=== PATIENT | male | born 2000 | race African-American/Black ===

== ENCOUNTER 2023-06-10 13:58 | Inpatient (IN) | payer BC, SELFPAY ==
[2023-06-10] VITALS (61 sets, daily range): BP systolic 102–145; BP diastolic 69–107; PULSE 66–98; RESP 12–32; TEMP 36.6; O2SAT 95–100
--- NOTE | ~2023-06-10 | XR_ITS ---
Clinical Indication: Chest pain AP and lateral views of the chest: Comparison: None Findings: The lungs are clear, without evidence of focal consolidation or pleural effusion. Cardiome diastinal silhouette is mildly prominent, possibly due to AP technique. Bones and soft tissues are un remarkable. Impression: Clear lungs. Reviewed, dictated and finalized at location . Impression: Clear lungs.
--- NOTE | ~2023-06-10 | XR_ITS ---
EXAMINATION: XR chest 1V portable Exam Date/Time: 06/14/2023 19:05 CDT HISTORY: INCREASING shortness of breath WITH COUGH Comparison: 06/13/2023. RESULT: Lines, tubes, and devices: None. Lungs and pleura: Similar bilateral lower lung segmental/lobar airspace disease. Moderate right and mild left costophrenic angle blunting. Cardiomediastinal silhouette: Stable cardiomegaly. Other: No acute osseous or upper abdominal finding. IMPRESSION: Grossly unchanged bilateral lower lung airspace disease, which could be consistent with acute chest s yndrome in the appropriate clinical context. Unchanged moderate right and small left pleural effusions. Reviewed, dictated and finalized at location K. IMPRESSION: Grossly unchanged bilateral lower lung airspace disease, which could be consist ent with acute chest syndrome in the appropriate clinical context. Unchanged moderate right and small left pleural effusions.
--- NOTE | ~2023-06-10 | XR_ITS ---
EXAMINATION: XR chest 1V portable DATE: 06/13/2023 10:08 INDICATION: Hypoxia. Sickle cell disease. TECHNIQUE: A single frontal view of the chest was obtained. COMPARISON: Chest 2 views 06/10/2023 FINDINGS: There are airspace opacities in the mid and lower lung zones with a basilar predominance. T here is a small right pleural effusion. No pneumothorax. Cardiomegaly is noted. IMPRESSION: 1. Airspace opacities in the mid and lower lung zones with a basilar predominance, consistent with ac fouzia chest syndrome. 2. Small right pleural effusion. 3. Cardiomegaly. Reviewed, dictated and finalized at location A. IMPRESSION: 1. Airspace opacities in the mid and lower lung zones with a basilar predominan ce, consistent with acute chest syndrome. 2. Small right pleural effusion. 3. Cardiomegaly.
--- NOTE | 2023-06-10 14:36 | ECG_ITS ---
Measurements Intervals [place] Rate: 65 P: 72 ME: 173 QRS: 42 QRSD: 88 T: 46 QT: 382 QTc: 399 Interpretive Statements SINUS RHYTHM NORMAL ECG NO PREVIOUS ECG AVAILABLE FOR COMPARISON Electronically Signed On 06-11-2023 10:21:33 CDT by Lencho Claire M.D.
[2023-06-10] MEDS: SODIUM CHLORIDE 0.9% IV 1,000 ML 999 ML IV CONT ×2 (14:46→16:19)
[2023-06-10] MEDS: fentaNYL CITRATE INJ (*CRX) 100 MCG/2 ML VIAL 50 MCG IV PUSH (14:47)
[2023-06-10] MEDS: ONDANSETRON INJ 4 MG/2 ML VIAL IV PUSH (14:47)
[2023-06-10 14:51] LABS: Hemoglobin 8.6 g/dL (14.0-18.0); Immature Reticulocyte Fraction 26.7 % (3.0-15.9); Mean Corpuscular HGB Conc 35.8 g/dl (32-36); Mean Corpuscular Hemoglobin 33.7 pg (26-34); Mean Corpuscular Volume 94.1 fl (80-100); Mean Platelet Volume 11.1 fl (7.4-10.4); Platelet Count Result 302 k/mm3 (150-375); Red Blood Count 2.55 M/mm3 (4.6-6.20); Red Cell Distribution Width 21.6 % (11.5-14.5); Reticulocyte Hemoglobin Conten 34.7 pg (28.2-35.7); Reticulocyte Percent 23.37 % (0.7-4.3); White Blood Count 10.3 K/mm3 (4.5-10.0)
[2023-06-10 15:00] LABS: Alanine Aminotransferase 42 U/L (6-50); Albumin Level 4.7 g/dL (3.5-5.1); Alkaline Phosphatase 63 U/L (38-126); Anion Gap 12 mmol/L (8-16); Aspartate Amino Transferase 61 U/L (17-59); Bilirubin,Total 3.3 mg/dL (0.2-1.3); Blood Urea Nitrogen 5 mg/dL (9-20); Calcium 9.2 mg/dL (8.4-10.2); Carbon Dioxide 22 mmol/L (22-30); Chloride 100 mmol/L (98-107); Estimated CRCL calculation 160 ml/min; Estimated Glomerular Filt Rate > 60; Glucose 111 mg/dL (65-110); Lactate Dehydrogenase 411 U/L (120-246); Potassium 3.6 mmol/L (3.4-5.0); Sodium 134 mmol/L (137-145)
[2023-06-10 15:02] LABS: Prothrombin Time 14.1 Seconds (11.1-14.7)
[2023-06-10 15:03] LABS: Partial Thromboplastin Time 27.6 SECONDS (22.3-36.8)
[2023-06-10 15:14] LABS: Lactic Acid Reflex 2.5 mmol/L (0.7-2.0)
[2023-06-10 15:26] LABS: Troponin I 0.055 ng/mL (0.000-0.034)
--- NOTE | 2023-06-10 15:41 | ED.GENADULT ---
HPI - General Adult General Chief complaint: Unspecified <Fabian Vargas MD - Last Filed: 06/18/23 19:20> Stated complaint: Sickle Cell pain <Fabian Vargas MD - Last Filed: 06/18/23 19:20> Time Seen by Provider: 06/10/23 14:09 <Fabian Vargas MD - Last Filed: 06/18/23 19:20> History of Present Illness HPI narrative: Patient is a 22-year-old male with history of sickle cell anemia who presents ER with reports of sickle pain crisis. Patient woke up this morning with pain in his chest/back/hips. The back and hips are typical places for him to have pain but the chest is atypical for him. His last acute chest crisis was in 2010. Patient typically receives care at [facility]. 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 He has no fevers or chills or sweats. No productive cough. No dyspnea despite history of asthma. He reports he missed his pheresis appointment last month and is scheduled to have pheresis of his blood performed in the next week. Denies any aggravating or alleviating factors of his discomfort. He typically takes Tylenol for pain at home. He is not on hydroxyurea. <Fabian Vargas MD - Last Filed: 06/18/23 19:20> Related Data Home medications: Home Medications Medication Instructions Recorded Confirmed albuterol sulfate 90 mcg/actuation 1 puff inhalation Q4-6H PRN 06/11/23 06/11/23 aerosol inhaler Shortness Of Breath Or Wheezing bictegravir 50 mg-emtricitabine 1 tablet PO DAILY 06/11/23 06/11/23 200 mg-tenofovir alafenam 25 mg tablet (Biktarvy) budesonide-formoterol HFA 80 1 puff inhalation DAILY 06/11/23 06/11/23 mcg-4.5 mcg/actuation aerosol inhaler (Symbicort) fluticasone propionate 50 1 spray intranasal DAILY PRN 06/11/23 06/11/23 mcg/actuation nasal Congestion spray,suspension valacyclovir 1 gram tablet 1 mg PO DAILY 06/11/23 06/11/23 <Fabian Vargas MD - Last Filed: 06/18/23 19:20> Allergies/adverse reactions: Allergies Allergy/AdvReac Type Severity Reaction Status Date / Time morphine Allergy Hives Verified 06/10/23 14:13 <Fabian Vargas MD - Last Filed: 06/18/23 19:20> Review of Systems Review of Systems: All systems reviewed & are unremarkable except as noted in HPI and below <Fabian Vargas MD - Last Filed: 06/18/23 19:20> Constitutional: Constitutional: Denies chills, Denies fatigue and Denies fever(s) <Fabian Vargas MD - Last Filed: 06/18/23 19:20> Cardiovascular: Cardiovascular: Reports chest pain, Reports radiating jaw, neck or arm pain and Reports palpitations <Fabian Vargas MD - Last Filed: 06/18/23 19:20> Respiratory: Respiratory: Denies cough and Denies dyspnea <Fabian Vargas MD - Last Filed: 06/18/23 19:20> Gastrointestinal: Gastrointestinal: Denies abdominal pain, Denies diarrhea, Denies nausea and Denies vomiting <Fabian Vargas MD - Last Filed: 06/18/23 19:20> Musculoskeletal: Musculoskeletal: Reports back pain, Reports arthralgias, Denies joint swelling and Denies muscle cramps <Fabian Vargas MD - Last Filed: 06/18/23 19:20> Neurologic: Denies syncope, Denies focal weakness and Denies numbness <Fabian Vargas MD - Last Filed: 06/18/23 19:20> FOR[facility]LY [facility], [facility] Past Medical History Medical History: Medical History (Updated 06/11/23 @ 19:04 by Odell Carvalho MD) Asthma Sickle cell anemia with crisis <Fabian Vargas MD - Last Filed: 06/18/23 19:20> Surgical History Surgical History: Surgical History (Updated 06/11/23 @ 19:04 by Odell Carvalho MD) No history of previous surgery <Fabian Vargas MD - Last Filed: 06/18/23 19:20> Family History Family History: Family History (Updated 06/11/23 @ 16:13 by Lauryn Casanova NP) Sibling Sickle cell trait Mother Hypertension Sickle cell trait <Fabian Vargas MD - Last Filed: 06/18/23 19:20> Social History Social History: Social History (Up
[2023-06-10 16:01] LABS: Lymphocytes Absolute Manual 2.36 K/mm3 (1.1-4.5); Metamyelocytes Percent 2 %; Monocytes Absolute Manual 1.23 K/mm3 (0.1-0.90); Monocytes Percent Manual 12 % (3-9); Myelocytes Percent 2 %; Neutrophils Percent Manual 61 % (46-73); Nucleated Red Blood Cells 2 %; Total Cells Counted 100
[2023-06-10 16:02] LABS: Anisocytosis 2+ (NORMAL); Platelet Estimate Adequate (Adequate); Poikilocytosis 2+ (NORMAL); Schistocytes None Seen (NORMAL)
[2023-06-10 16:04] LABS: Sickle Cells 2+ (NORMAL); Target Cells 1+ (NORMAL)
[2023-06-10] MEDS: diphenhydrAMINE HCl INJ 50 MG/ML VIAL 25 MG IV PUSH ×2 (16:13→22:04)
[2023-06-10] MEDS: HYDROmorphone HCL INJ (*CRX) 1 MG/ML SYR IV PUSH ×3 (16:14→22:05)
[2023-06-10 18:00] LABS: Reflex Lactic Acid Yes or No Add Lactic
[2023-06-10 18:09] LABS: Troponin I 0.055 ng/mL (0.000-0.034)
[2023-06-10] MEDS: SODIUM CHLORIDE 0.9% IV 1,000 ML 150 ML IV CONT (18:15)
[2023-06-10 18:34] LABS: Lactic Acid 0.6 mmol/L (0.7-2.0)
[2023-06-10] MEDS: diphenhydrAMINE HCl INJ 50 MG/ML VIAL (19:58)
[2023-06-10 21:08] LABS: Troponin I 0.051 ng/mL (0.000-0.034)
[2023-06-11] VITALS (83 sets, daily range): BP systolic 104–140; BP diastolic 64–90; PULSE 77–133; RESP 12–33; TEMP 36.7–38.7; O2SAT 92–100; BMI 19.0
[2023-06-11] MEDS: HYDROmorphone HCL INJ (*CRX) 1 MG/ML SYR IV PUSH ×4 (01:24→15:22)
[2023-06-11] MEDS: KETOROLAC 15 MG/ML VIAL (*BKC) IV PUSH (01:28)
--- NOTE | 2023-06-11 03:49 | PC.NURSE ---
updated [facility] transfer center; no beds available at this time.
[2023-06-11] MEDS: SODIUM CHLORIDE 0.9% IV 1,000 ML 150 ML IV CONT (05:04)
[2023-06-11] MEDS: oxyCODONE/ACETAMINOPHEN (*CRX) 5-325 MG TABLET 1 TABLET PO (05:05)
[2023-06-11 06:53] LABS: Basophils Absolute Auto 0.1 K/mm3 (0.0-0.1); Basophils Percent Auto 0.4 % (0.2-1.2); Eosinophils Percent Auto 0.1 % (0-4.4); Hematocrit 22.5 % (42.0-52.0); Hemoglobin 7.8 g/dL (14.0-18.0); Immature Granulocyte Absolute 0.39 K/mm3 (0.00-0.031); Immature Granulocyte Percent A 2.6 % (0-0.5); Lymphocytes Absolute Auto 0.75 K/mm3 (0.9-3.2); Lymphocytes Percent Auto 5.1 % (18.3-44.2); Mean Corpuscular HGB Conc 34.7 g/dl (32-36); Mean Corpuscular Hemoglobin 33.8 pg (26-34); Mean Corpuscular Volume 97.4 fl (80-100); Mean Platelet Volume 10.5 fl (7.4-10.4); Monocytes Absolute Auto 0.9 K/mm3 (0.1-0.6); Monocytes Percent Auto 6.2 % (2.6-8.5); Neutrophils Absolute Auto 12.7 K/mm3 (1.3-6.7); Neutrophils Percent Auto 85.6 % (45.5-73.1); Nucleated Red Blood Cells Absolute Auto 0.8 K/mm3 (0.0-0.012); Nucleated Red Blood Cells Perc 5.1 % (0.0-0.2); Platelet Count Result 218 k/mm3 (150-375); Red Blood Count 2.31 M/mm3 (4.6-6.20); Red Cell Distribution Width 21.7 % (11.5-14.5); White Blood Count 14.9 K/mm3 (4.5-10.0)
[2023-06-11 07:02] LABS: Potassium 4.2 mmol/L (3.4-5.0)
[2023-06-11 07:03] LABS: Sickle Cells 3+ (NORMAL)
[2023-06-11 07:04] LABS: Anisocytosis 3+ (NORMAL); Platelet Estimate Adequate (Adequate); Poikilocytosis 2+ (NORMAL); Schistocytes None Seen (NORMAL); Target Cells 1+ (NORMAL)
[2023-06-11 07:08] LABS: Alanine Aminotransferase 43 U/L (6-50); Albumin Level 4.1 g/dL (3.5-5.1); Alkaline Phosphatase 53 U/L (38-126); Anion Gap 5 mmol/L (8-16); Aspartate Amino Transferase 88 U/L (17-59); Bilirubin,Total 2.6 mg/dL (0.2-1.3); Blood Urea Nitrogen 4 mg/dL (9-20); Calcium 8.6 mg/dL (8.4-10.2); Carbon Dioxide 26 mmol/L (22-30); Chloride 102 mmol/L (98-107); Estimated CRCL calculation 160 ml/min; Estimated Glomerular Filt Rate > 60; Glucose 108 mg/dL (65-110); Sodium 133 mmol/L (137-145)
--- NOTE | 2023-06-11 10:26 | ADMGEN ---
This patient, Azar Bernard, was admitted to IMU Room 205-01. Patient/family oriented to hospital policies and general routines including ID bracelet, bed and alarms, visiting hours, pain management, procedures, bathroom and other care routines, personal items, smoking policy, room service/diet, and visiting hours. Information on how to activate the Rapid Response Team has been discussed. Patient/Family are encouraged to report perceived risks to care and to ask questions if they do not understand what they are told or what they should do.
[2023-06-11] MEDS: SODIUM CHLORIDE 0.9% IV 1,000 ML 125 ML IV CONT ×2 (12:01→21:25)
--- NOTE | 2023-06-11 13:47 | PM.IMHP ---
H&P: HPI History of Present Illness Date/Time: 06/11/23 13:47 Chief Complaint: Sickle cell pain Narrative: This is a 22-year-old male patient who has a history of sickle cell anemia. 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 He also has pain in his chest that started on the morning that he came to the emergency room on 06/10/2023. The patient typically gets all of his care at [facility]. He has had no fever chills. The patient does use an inhaler p.r.n. for wheezes as he has asthma. The patient has not been able to tolerate hydroxyurea. The patient does not take any chronic narcotics. He has an allergy to morphine. His white count is noted to be 14.9 today with an H&H is 7.8 and 22.5. His hemoglobin was 8.6 on the day that he came to the emergency room yesterday. Sodium is 133. His troponin is 0.055, 0.055, and 0.051. The patient has a poor oral intake and is complaining of some abdominal pain. His chest x-ray on 06/10/2023 was read as clear lungs. The patient was given Dilaudid, Benadryl, IV fluid, aspirin, and oxycodone. The patient continues to climb plane of discomfort. Patient has 3+ sickle cells on his CBC. Reticular count 23.37 yesterday. The patient is being admitted to observation status on the date of service of 06/11/2023. Review of Systems Review of Systems: All systems reviewed & are unremarkable except as noted in HPI and below Constitutional: Constitutional: Reports as per HPI and Reports no additional constitutional complaints Eyes: Eyes: Reports as per HPI and Reports no additional eye complaints ENT: Reports system reviewed and no additional complaints, except as documented and Reports Normal hearing present Cardiovascular: Cardiovascular: Reports no additional cardiovascular complaints Respiratory: Respiratory: Reports no additional respiratory complaints and Reports no additional respiratory complaints Gastrointestinal: Gastrointestinal: Reports as per HPI and Reports no additional gastrointestinal complaints Musculoskeletal: Musculoskeletal: Reports no additional musculoskeletal complaints Integumentary/Breasts: Skin/Breast: Reports system reviewed and no additional complaints, except as docu and Reports as per HPI Neurologic: Reports system reviewed and no additional complaints, except as documented, Reports as per HPI and Reports Normal hearing present Psychiatric: Psychiatric: Reports no additional psychiatric complaints and Reports as per HPI Endocrine: Endocrine: Reports no additional endocrine complaints Hematologic/Lymphatic: Hematologic/Lymphatic: Reports no additional hematologic/lymphatic complaints Allergic/Immunologic: Allergic/Immunologic: Reports no additional allergic/immunologic complaints [facility] Past Medical History Medical History (Updated 06/11/23 @ 16:08 by Lauryn Casanova NP) Asthma Sickle cell anemia with crisis Surgical History Surgical History (Updated 06/10/23 @ 15:45 by Fabian Vargas MD) No history of previous surgery Family History Family History (Updated 06/11/23 @ 16:13 by Lauryn Casanova NP) Sibling Sickle cell trait Mother Hypertension Sickle cell trait Social History Social History (Updated 06/11/23 @ 16:14 by Lauryn Casanova NP) Social History: The patient is single and has no children. The patient does vape. he lives in [place]. He denies any alcohol or illicit drugs. 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 Code status full code Smoking status: Never smoker Lack of Transportation: No Lack of Food: Never True Current Housing: I Have Housing Concerned About Future Housing: No Difficulty Paying Gas/Electric Bills: No Difficulty Paying for Meds: No Currently Unemployed: No Education: High School Diploma/GED Difficulty w/ Childcare or Family Care: No Spiritual care concerns: No M
[2023-06-11] MEDS: diphenhydrAMINE HCl INJ 50 MG/ML VIAL 25 MG IV PUSH (15:26)
[2023-06-11 16:04] LABS: Hematocrit 21.7 % (42.0-52.0); Hemoglobin 7.6 g/dL (14.0-18.0)
[2023-06-11] MEDS: HYDROmorphon 0.2MG/ML PCA(*CRX 6 MG/30 ML PCA.VIAL 2.5 MG IV CONT ×2 (16:49→21:39)
--- NOTE | 2023-06-11 19:00 | PDONCCN ---
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 Patient has been on exchange transfusion on a monthly basis for last 3 years duration at [facility]. His last exchange transfusion was about a month ago. He denies any sign of infection including fever chills and dysuria. He has intolerant to hydroxyurea and is not taking any folic acid. On admission is hemoglobin moderate 0.6 with elevated LDH. Retic count and bilirubin was elevated. Chest x-ray was normal. He was started on IV hydration and Dilaudid [employer] with improvement in the pain control. Review of Systems - Review of Systems All systems reviewed & are unremarkable except as noted in HPI and bel - Neurologic Reports system reviewed and no additional complaints, except as documented, Reports hearing normal, Denies syncope, Denies focal weakness, Denies numbness [facility] Medical History: Medical History (Last Updated 06/11/23 @ 16:08 by Lauryn Casanova NP) Asthma Sickle cell anemia with crisis Surgical History: Surgical History (Last Updated 06/10/23 @ 15:45 by Fabian Vargas MD) No history of previous surgery Family History: Family History (Last Updated 06/11/23 @ 16:13 by Lauryn Casanova NP) Sibling Sickle cell trait Mother Hypertension Sickle cell trait - Social History Social History: Social History (Last Updated 06/11/23 @ 16:14 by Lauryn Casanova NP) Others: Spiritual care concerns: No Smoking Status: Smoking status: Never smoker Social Determinants of Health: Has the Lack of Transportation Kept You From Medical Appointments or From Getting Medications?: No Within the Past 12 Months, Were You Worried Whether Your Food Would Run Out Before You Got Money to Buy More?: Never True What is Your Housing Situation Today?: I Have Housing Are You Worried That in the Next 2 Months, You May Not Have Your Own Housing to Live In?: No Do You Have Trouble Paying Your Heating Or Electricity Bill?: No Do You Have Trouble Paying For Medicines?: No Are You Currently Unemployed and Looking for Work?: No Highest Level of Education Completed: High School Diploma/GED Do You Have Trouble With Childcare or the Care of a Family Member?: No Exam - Vital Signs Vital Signs - 24 hr 06/10/23 19:10 06/10/23 19:15 06/10/23 19:17 Temperature Pulse Rate 69 69 90 Respiratory Rate 12 12 19 Blood Pressure 116/87 130/77 Pulse Oximetry 100 100 100 Oxygen Delivery Oxygen Flow Rate 06/10/23 19:30 06/10/23 19:31 06/10/23 19:45 Temperature Pulse Rate 73 68 67 Respiratory Rate 17 20 21 H Blood Pressure 119/77 Pulse Oximetry 100 100 100 Oxygen Delivery Oxygen Flow Rate 06/10/23 19:46 06/10/23 20:00 06/10/23 20:01 Temperature Pulse Rate 68 78 70 Respiratory Rate 18 23 H 15 Blood Pressure 130/102 H 131/82 Pulse Oximetry 100 100 100 Oxygen Delivery Oxygen Flow Rate 06/10/23 20:15 06/10/23 20:16 06/10/23 20:30 Temperature Pulse Rate 74 78 73 Respiratory Rate 12 13 14 Blood Pressure 126/85 Pulse Oximetry 100 100 100 Oxygen Delivery Oxygen Flow Rate 06/10/23 20:45 06/10/23 21:00 06/10/23 21:15 Temperature Pulse Rate 71 74 92 Respiratory Rate 18 13 18 Blood Pressure Pulse Oximetry 100 100 100 Oxygen Delivery Oxygen Flow Rate 06/10/23 21:30 06/10/23 21:45 06/10/23 22:00 Temperature Pulse Rate 78 87 81 Respiratory Rate 17 16 18 Blood Pressure Pulse Oximetry 100 100 100 Oxygen Delivery Oxygen Flow Rate 06/10/23 22:10 06/10/23 22:15
[2023-06-11 19:43] LABS: Lactate Dehydrogenase 1177 U/L (120-246)
[2023-06-11] MEDS: FLUTICASONE/SALMETEROL 45-21 MCG INHALER 1 PUFF 2 PUFF INHALATION (20:25)
[2023-06-11] MEDS: ALBUTEROL SULFATE NEB 2.5 MG/3 ML INH INHALATION (21:29)
[2023-06-11 22:37] LABS: Hemoglobin 7.8 g/dL (14.0-18.0)
[2023-06-12] VITALS (24 sets, daily range): BP systolic 107–124; BP diastolic 60–74; PULSE 110–139; RESP 14–26; TEMP 36.4–38.7; O2SAT 93–100
[2023-06-12] MEDS: ACETAMINOPHEN 325 MG TABLET 650 MG PO ×3 (00:29→22:43)
[2023-06-12] MEDS: diphenhydrAMINE HCl INJ 50 MG/ML VIAL 25 MG IV PUSH ×4 (03:27→22:44)
[2023-06-12] MEDS: HYDROmorphon 0.2MG/ML PCA(*CRX 6 MG/30 ML PCA.VIAL 2.5 MG IV CONT ×3 (04:23→16:58)
[2023-06-12] MEDS: SODIUM CHLORIDE 0.9% IV 1,000 ML 125 ML IV CONT ×3 (04:29→20:32)
[2023-06-12 04:44] LABS: Appearance Urine Clear (Clear); Bilirubin Urine Negative (Negative); Blood Urine Negative (Negative); Color Urine Yellow (Yellow); Glucose Urine UA Negative (Negative); Ketones Urine Negative (Negative); Leukocyte Esterase Ur Negative LEU/UL (Negative); Nitrate Urine Negative (Negative); Protein Urine Negative (Negative); Specific Grav Ur 1.007 (1.001-1.035); pH Urine 5.5 (5.0-9.0)
[2023-06-12 04:47] LABS: Add Urine Microscopic? NO
[2023-06-12 04:51] LABS: Hematocrit 21.4 % (42.0-52.0); Hemoglobin 7.5 g/dL (14.0-18.0); Mean Corpuscular Hemoglobin 33.9 pg (26-34); Mean Corpuscular Volume 96.8 fl (80-100); Mean Platelet Volume 10.5 fl (7.4-10.4); Platelet Count Result 194 k/mm3 (150-375); Red Blood Count 2.21 M/mm3 (4.6-6.20); Red Cell Distribution Width 19.8 % (11.5-14.5); White Blood Count 11.5 K/mm3 (4.5-10.0)
[2023-06-12 05:02] LABS: Lactic Acid Reflex 0.8 mmol/L (0.7-2.0)
[2023-06-12 05:03] LABS: Alanine Aminotransferase 50 U/L (6-50); Albumin Level 3.6 g/dL (3.5-5.1); Alkaline Phosphatase 117 U/L (38-126); Anion Gap 0 mmol/L (8-16); Aspartate Amino Transferase 94 U/L (17-59); Bilirubin,Total 2.7 mg/dL (0.2-1.3); Blood Urea Nitrogen 5 mg/dL (9-20); Calcium 8.3 mg/dL (8.4-10.2); Carbon Dioxide 32 mmol/L (22-30); Chloride 97 mmol/L (98-107); Estimated CRCL calculation 164 ml/min; Estimated Glomerular Filt Rate > 60; Glucose 96 mg/dL (65-110); Potassium 4.1 mmol/L (3.4-5.0); Sodium 129 mmol/L (137-145)
[2023-06-12 05:07] LABS: Immature Reticulocyte Fraction 19.1 % (3.0-15.9); Reticulocyte Hemoglobin Conten 30.5 pg (28.2-35.7); Reticulocyte Percent 24.16 % (0.7-4.3)
[2023-06-12 05:21] LABS: Eosinophils Absolute Manual 0.11 K/mm3 (0.02-0.5); Eosinophils Percent Manual 1 % (0-4); Lymphocytes Absolute Manual 2.99 K/mm3 (1.1-4.5); Monocytes Absolute Manual 0.23 K/mm3 (0.1-0.90); Monocytes Percent Manual 2 % (3-9); Neutrophils Percent Manual 71 % (46-73); Nucleated Red Blood Cells 42 %; Total Cells Counted 100
[2023-06-12 05:22] LABS: Platelet Estimate Adequate (Adequate); Sickle Cells 3+ (NORMAL)
[2023-06-12 05:23] LABS: Anisocytosis 3+ (NORMAL); Macrocytosis 2+ (NORMAL); Poikilocytosis 3+ (NORMAL); Target Cells 3+ (NORMAL)
[2023-06-12 05:24] LABS: Polychromasia 1+ (NORMAL)
[2023-06-12 05:26] LABS: Schistocytes None Seen (NORMAL)
[2023-06-12] MEDS: FLUTICASONE/SALMETEROL 45-21 MCG INHALER 1 PUFF 2 PUFF INHALATION ×2 (08:04→19:30)
[2023-06-12] MEDS: valACYclovir HCL 500 MG TABLET 1000 MG PO (09:08)
--- NOTE | 2023-06-12 11:20 | PM.IMPN ---
Progress Note: A&P Assessment and Plan (1) Sickle cell pain crisis: Code(s): D57.00 - Hb-SS disease with crisis, unspecified Status: Acute Assessment and Plan: Reticular count is high. Sickle cells present in the blood. Hematology has been consulted. Continue on a Dilaudid [employer] pump. The patient cannot tolerate hydroxyurea. He is not chronically on any narcotics. Oncology on board (2) Asthma: Code(s): J45.909 - Unspecified asthma, uncomplicated Status: Acute Assessment and Plan: Continue with home inhalers. Chest x-ray was read as clear lungs. Subjective Date/time seen: 06/12/23 11:20 Interval history: Patient states his pain is improved. Advised him to decrease use of Dilaudid [employer] a Review of Systems Review of Systems: All systems reviewed & are unremarkable except as noted in HPI and below Constitutional: Constitutional: Reports as per HPI and Reports no additional constitutional complaints Eyes: Eyes: Reports as per HPI and Reports no additional eye complaints ENT: Reports system reviewed and no additional complaints, except as documented and Reports Normal hearing present Cardiovascular: Cardiovascular: Reports no additional cardiovascular complaints Respiratory: Respiratory: Reports no additional respiratory complaints and Reports no additional respiratory complaints Gastrointestinal: Gastrointestinal: Reports as per HPI and Reports no additional gastrointestinal complaints Musculoskeletal: Musculoskeletal: Reports no additional musculoskeletal complaints Integumentary/Breasts: Skin/Breast: Reports system reviewed and no additional complaints, except as docu and Reports as per HPI Neurologic: Reports system reviewed and no additional complaints, except as documented, Reports as per HPI and Reports Normal hearing present Psychiatric: Psychiatric: Reports no additional psychiatric complaints and Reports as per HPI Endocrine: Endocrine: Reports no additional endocrine complaints Hematologic/Lymphatic: Hematologic/Lymphatic: Reports no additional hematologic/lymphatic complaints Allergic/Immunologic: Allergic/Immunologic: Reports no additional allergic/immunologic complaints Exam Const: General: cooperative, healthy appearing, comfortable, no acute distress, well developed, alert, awake, Physically active and thin Nutritional Appearance: average body habitus and thin Orientation/consciousness: oriented to person, oriented to place, oriented to time and patient oriented x3 Limitations: no limitations HENMT: Head: normal to inspection, No palpable skull fracture present, normocephalic, atraumatic and abrasion Ears: hearing grossly normal bilaterally and external ears normal Face/Nose/Sinus: Normal external nose present and Normal nares present Eyes: General: appearance normal, both eyes and all related structures Alignment and Position: alignment normal Periorbital: periorbital findings normal Eyelids: eyelids normal Sclera: sclerae normal Pupils: Equal, round and reactive pupils present EOM: EOMs intact bilaterally Neck: Neck: normal visual inspection, full ROM, no lymphadenopathy, trachea midline and supple Chest: Chest palpation & inspection: normal inspection of the chest Resp: Effort & Inspection: normal respiratory effort Auscultation: diminished lung sounds Cardio: Palpation: normal PMI Rate: regular rate Rhythm: regular rhythm Heart sounds: S1 normal heart sound present and S2 normal heart sound present Peripheral pulses: Peripheral pulses 2+ throughout GI: Inspection: normal to inspection Auscultation: normal bowel sounds Rectal Exam: deferred Back/Spine/Pelvis: Cervical Spine: cervical ROM normal Skin: General skin exam: normal color Lesions: no lesions Rashes: no rashes Trauma: no lacerations or abrasions Wounds: no wounds Hair: normal Nails: normal Neuro: General: oriented to person, oriented to place, oriented to time and patient orient
[2023-06-12] MEDS: HYDROmorphone HCL INJ (*CRX) 1 MG/ML SYR 0.5 MG IV PUSH (17:36)
[2023-06-13] VITALS (29 sets, daily range): BP systolic 114–141; BP diastolic 66–93; PULSE 96–133; RESP 18–22; TEMP 36.3–37.3; O2SAT 89–98
[2023-06-13] MEDS: HYDROmorphon 0.2MG/ML PCA(*CRX 6 MG/30 ML PCA.VIAL 2.5 MG IV CONT ×4 (01:11→21:29)
[2023-06-13] MEDS: ALBUTEROL SULFATE NEB 2.5 MG/3 ML INH INHALATION (02:31)
[2023-06-13] MEDS: SODIUM CHLORIDE 0.9% IV 1,000 ML 125 ML IV CONT (04:46)
[2023-06-13] MEDS: ACETAMINOPHEN 325 MG TABLET 650 MG PO ×5 (04:46→20:32)
[2023-06-13] MEDS: diphenhydrAMINE HCl INJ 50 MG/ML VIAL 25 MG IV PUSH ×5 (04:47→20:32)
[2023-06-13] MEDS: FLUTICASONE/SALMETEROL 45-21 MCG INHALER 1 PUFF 2 PUFF INHALATION ×2 (07:53→20:17)
[2023-06-13] MEDS: valACYclovir HCL 500 MG TABLET 1000 MG PO (08:15)
--- NOTE | 2023-06-13 09:19 | PC.NURSE ---
Patient having increase O2 requirements , desats to 70% when NC is removed, Hr elevated 120-130s. No complaints of dyspnea. Patient currently on 4L NC with sats 92% Patient also states that he has asthma. Notified MD, CXR ordered.
[2023-06-13 09:34] LABS: Mean Corpuscular HGB Conc 34.9 g/dl (32-36); Mean Corpuscular Volume 94.5 fl (80-100); Mean Platelet Volume 10.8 fl (7.4-10.4); Platelet Count Result 155 k/mm3 (150-375); Red Blood Count 1.82 M/mm3 (4.6-6.20); Red Cell Distribution Width 19.5 % (11.5-14.5)
[2023-06-13 09:38] LABS: Hematocrit 17.2 % (42.0-52.0)
[2023-06-13 09:45] LABS: Alanine Aminotransferase 43 U/L (6-50); Albumin Level 3.4 g/dL (3.5-5.1); Alkaline Phosphatase 93 U/L (38-126); Anion Gap 0 mmol/L (8-16); Aspartate Amino Transferase 64 U/L (17-59); Bilirubin,Total 3.7 mg/dL (0.2-1.3); Blood Urea Nitrogen 6 mg/dL (9-20); Carbon Dioxide 34 mmol/L (22-30); Chloride 97 mmol/L (98-107); Estimated CRCL calculation 164 ml/min; Estimated Glomerular Filt Rate > 60; Glucose 105 mg/dL (65-110); Potassium 4.1 mmol/L (3.4-5.0); Sodium 131 mmol/L (137-145)
[2023-06-13 10:00] LABS: Total Cells Counted 100
[2023-06-13 10:01] LABS: Anisocytosis 2+ (NORMAL); Lymphocytes Absolute Manual 1.54 K/mm3 (1.1-4.5); Lymphocytes Percent Manual 11 % (18-44); Monocytes Absolute Manual 0.28 K/mm3 (0.1-0.90); Monocytes Percent Manual 2 % (3-9); Neutrophils Percent Manual 87 % (46-73); Nucleated Red Blood Cells 8 %; Platelet Estimate Adequate (Adequate)
[2023-06-13 10:02] LABS: Sickle Cells 2+ (NORMAL); Target Cells 2+ (NORMAL)
[2023-06-13 10:03] LABS: Hypochromasia 2+ (NORMAL); Schistocytes None Seen (NORMAL)
--- NOTE | 2023-06-13 11:42 | PM.IMPN ---
Progress Note: A&P Assessment and Plan (1) Sickle cell pain crisis: Code(s): D57.00 - Hb-SS disease with crisis, unspecified Status: Acute Assessment and Plan: Reticular count is high. Sickle cells present in the blood. Hematology has been consulted. Continue on a Dilaudid [employer] pump. The patient cannot tolerate hydroxyurea. Oncology on board. Cbc suggest acute drop in hemoglobin. Most likely that is why he is requiring oxygen because of high oxygen demand. We will transfuse 1 unit PRBC and monitor CBC after that. Continue IV fluids judiciously (2) Asthma: Code(s): J45.909 - Unspecified asthma, uncomplicated Status: Acute Assessment and Plan: Continue with home inhalers. Chest x-ray shows acute chest syndrome Subjective Date/time seen: 06/13/23 11:42 Interval history: Patient still reports generalized pain, requiring 3-4 L oxygen now because of hypoxia Review of Systems Review of Systems: All systems reviewed & are unremarkable except as noted in HPI and below Exam Const: General: cooperative, healthy appearing, alert, awake, Physically active and thin Nutritional Appearance: average body habitus and thin Orientation/consciousness: oriented to person, oriented to place, oriented to time and patient oriented x3 Limitations: no limitations HENMT: Head: normal to inspection, No palpable skull fracture present, normocephalic, atraumatic and abrasion Ears: hearing grossly normal bilaterally and external ears normal Face/Nose/Sinus: Normal external nose present and Normal nares present Eyes: General: appearance normal, both eyes and all related structures Alignment and Position: alignment normal Periorbital: periorbital findings normal Eyelids: eyelids normal Sclera: sclerae normal Pupils: Equal, round and reactive pupils present EOM: EOMs intact bilaterally Neck: Neck: normal visual inspection, full ROM, no lymphadenopathy, trachea midline and supple Chest: Chest palpation & inspection: normal inspection of the chest Resp: Effort & Inspection: normal respiratory effort Auscultation: diminished lung sounds Cardio: Palpation: normal PMI Rate: regular rate Rhythm: regular rhythm Heart sounds: S1 normal heart sound present and S2 normal heart sound present Peripheral pulses: Peripheral pulses 2+ throughout GI: Inspection: normal to inspection Auscultation: normal bowel sounds Rectal Exam: deferred Back/Spine/Pelvis: Cervical Spine: cervical ROM normal Skin: General skin exam: normal color Lesions: no lesions Rashes: no rashes Trauma: no lacerations or abrasions Wounds: no wounds Hair: normal Nails: normal Neuro: General: oriented to person, oriented to place, oriented to time and patient oriented x3 Cranial nerves: Yes Equal, round and reactive pupils present and Yes Normal hearing present Cognition (Neuro): normal cognition Speech: normal speech Sensory Exam: normal sensation Extrem: General: normal to inspection Right upper extremity: normal to inspection and shoulder/upper arm Left upper extremity: normal to inspection and shoulder/upper arm Right lower extremity: normal to inspection Left lower extremity: normal to inspection Psych: Appearance: grossly normal Mental Status: mental status grossly normal Speech and movement: Normal speech and movement present Affect: normal affect Attitude: cooperative Thought process: Normal thought process present Thought content: Yes Normal thought content present Insight: Good insight present (Psych) Judgement: Good judgement present (Psych) Objective Data Vital Signs Vital Signs: Vital Signs - 24 hr 06/12/23 12:00 06/12/23 16:00 06/12/23 16:58 Temperature 97.5 F L 97.5 F L Pulse Rate 122 H 123 H Respiratory Rate 20 16 26 H Blood Pressure 117/66 119/74 Pulse Oximetry 99 97 100 Oxygen Delivery Oxygen Flow Rate Fraction of Inspired Oxygen 06/12/23 16:58 06/12/23 12:00 06/12/23 14:00 T
[2023-06-13] MEDS: SODIUM CHLORIDE 0.9% IV 1,000 ML 75 ML IV CONT ×2 (12:16→22:13)
[2023-06-13] MEDS: SODIUM CHLORIDE 0.9% IV 250 ML 30 ML IV CONT (16:22)
[2023-06-13 19:14] LABS: Hematocrit 14.6 % (42.0-52.0); Hemoglobin 4.9 g/dL (14.0-18.0)
[2023-06-13 20:17] LABS: Hematocrit 21.2 % (42.0-52.0); Hemoglobin 7.2 g/dL (14.0-18.0)
[2023-06-14] VITALS (27 sets, daily range): BP systolic 113–140; BP diastolic 65–81; PULSE 108–133; RESP 14–20; TEMP 36.1–36.5; O2SAT 88–100
[2023-06-14] MEDS: ALBUTEROL SULFATE NEB 2.5 MG/3 ML INH INHALATION ×2 (03:03→14:29)
[2023-06-14] MEDS: ACETAMINOPHEN 325 MG TABLET 650 MG PO ×4 (03:57→18:35)
[2023-06-14] MEDS: ONDANSETRON INJ 4 MG/2 ML VIAL IV PUSH (04:04)
[2023-06-14] MEDS: HYDROmorphon 0.2MG/ML PCA(*CRX 6 MG/30 ML PCA.VIAL 2.5 MG IV CONT ×4 (04:21→23:24)
[2023-06-14] MEDS: FLUTICASONE/SALMETEROL 45-21 MCG INHALER 1 PUFF 2 PUFF INHALATION ×2 (08:03→21:01)
--- NOTE | 2023-06-14 08:20 | PM.IMPN ---
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 Continue on a Dilaudid WAREHOUSE EXAMINER pump. The patient cannot tolerate hydroxyurea. Oncology on board. Monitor LDH, retic count, hgb. S/p transfusion 1 unit pRBCs 06/13 Continue IV fluids judiciously, dilaudid WAREHOUSE EXAMINER (2) Asthma: Code(s): J45.909 - Unspecified asthma, uncomplicated Status: Acute Assessment and Plan: Continue with home inhalers. Chest x-ray shows acute chest syndrome Plan DVT prophylaxis with SCDs GI prophylaxis not indicated Code status full code Subjective Date/time seen: 06/14/23 08:20 Interval history: 22-year-old male with history of sickle cell anemia presenting with generalized pain and being treated for sickle cell crisis. No overnight events noted. Still with some chest pain or shortness of breath, improved from yesterday. No nausea, vomiting or diarrhea. No fevers or chills. Review of Systems Review of Systems: 12 point review of systems was assessed and was negative except as noted in the HPI Exam Narrative: General: No acute distress, alert and oriented per baseline HEENT: Atraumatic, normocephalic, mucous membranes moist CV: Regular rate and rhythm, S1, S2 Lungs: Clear to auscultation bilaterally, no rales or crackles noted, no wheezes, good air entry Abdomen: Soft, nontender, nondistended Extremities: Normal to inspection Skin: No rashes noted, no lesions or wounds seen Psych: Euthymic, normal affect Objective Data Vital Signs Vital Signs: Vital Signs - 24 hr 06/13/23 09:00 06/13/23 10:00 06/13/23 11:59 Temperature 98.2 F Pulse Rate 127 H 126 H 120 H Respiratory Rate 18 Blood Pressure 121/71 Pulse Oximetry 91 98 Oxygen Delivery Oxygen Flow Rate 4 Fraction of Inspired Oxygen 06/13/23 15:35 06/13/23 16:08 06/13/23 16:15 Temperature 99.2 F 99.2 F 97.9 F Pulse Rate 118 H 118 H 117 H Respiratory Rate 22 H 22 H 22 H Blood Pressure 114/66 114/66 141/85 H Pulse Oximetry 96 96 97 Oxygen Delivery Oxygen Flow Rate Fraction of Inspired Oxygen 06/13/23 16:00 06/13/23 16:53 06/13/23 17:30 Temperature 98.9 F 99 F 98.9 F Pulse Rate 117 H 116 H 117 H Respiratory Rate 20 20 20 Blood Pressure 121/70 135/73 119/67 Pulse Oximetry 97 94 97 Oxygen Delivery Oxygen Flow Rate Fraction of Inspired Oxygen 06/13/23 14:00 06/13/23 18:00 06/13/23 20:02 Temperature 97.3 F L Pulse Rate 118 H 116 H 116 H Respiratory Rate 18 Blood Pressure 133/68 Pulse Oximetry 90 Oxygen Delivery Oxygen Flow Rate Fraction of Inspired Oxygen 06/13/23 20:19 06/13/23 20:21 06/13/23 22:50 Temperature 97.3 F L Pulse Rate 120 H 120 H 96 Respiratory Rate 20 20 18 Blood Pressure 118/93 H Pulse Oximetry 92 96 Oxygen Delivery Nasal Cannula Oxygen Flow Rate 4 Fraction of Inspired Oxygen 36 06/13/23 20:00 06/13/23 20:00 06/13/23 22:00 Temperature Pulse Rate 122 H 96 110 H Respiratory Rate 18 Blood Pressure Pulse Oximetry 96 Oxygen Delivery Nasal Cannula Oxygen Flow Rate 4 Fraction of Inspired Oxygen 36 06/13/23 23:04 06/13/23 23:04 06/14/23 03:04 Temperature Pulse Rate 115 H 115 H 113 H Respiratory Rate 18 20 Blood Pressure Pulse Oximetry 97 Oxygen Delivery Nasal Cannula Oxygen Flow Rate 4 Fraction of Inspired Oxygen 36 06/14/23 03:06 06/14/23 03:11 06/14/23 03:18 Temperature 97.3 F L Pulse Rate 115 H 123 H 123 H Respiratory Rate 20 20 18 Blood Pressure 128/71 Pulse Oximetry 100 98 Oxygen Delivery Nasal Cannula Oxygen Flow Rate 3 Fraction of Inspired Oxygen 32 06/14/23 02:00 06/14/23 04:00 06/14/23 04:00 Temperature Pulse Rate 122 H 133 H 133 H Respiratory Rate 18 Blood Pressure Pulse Oximetry 98 Oxygen
[2023-06-14 08:42] LABS: Hematocrit 21.8 % (42.0-52.0); Hemoglobin 7.5 g/dL (14.0-18.0); Mean Corpuscular HGB Conc 34.4 g/dl (32-36); Mean Corpuscular Volume 90.1 fl (80-100); Mean Platelet Volume 10.9 fl (7.4-10.4); Platelet Count Result 197 k/mm3 (150-375); Red Blood Count 2.42 M/mm3 (4.6-6.20); Red Cell Distribution Width 18.5 % (11.5-14.5); White Blood Count 13.2 K/mm3 (4.5-10.0)
[2023-06-14 08:54] LABS: Alanine Aminotransferase 37 U/L (6-50); Albumin Level 3.5 g/dL (3.5-5.1); Alkaline Phosphatase 93 U/L (38-126); Anion Gap 2 mmol/L (8-16); Aspartate Amino Transferase 52 U/L (17-59); Bilirubin,Total 2.7 mg/dL (0.2-1.3); Blood Urea Nitrogen 3 mg/dL (9-20); Calcium 8.3 mg/dL (8.4-10.2); Carbon Dioxide 37 mmol/L (22-30); Chloride 93 mmol/L (98-107); Estimated CRCL calculation 199 ml/min; Estimated Glomerular Filt Rate > 60; Glucose 118 mg/dL (65-110); Potassium 3.8 mmol/L (3.4-5.0); Sodium 132 mmol/L (137-145)
[2023-06-14] MEDS: valACYclovir HCL 500 MG TABLET 1000 MG PO (09:34)
[2023-06-14 09:35] LABS: Lactate Dehydrogenase 711 U/L (120-246)
[2023-06-14] MEDS: diphenhydrAMINE HCl INJ 50 MG/ML VIAL 25 MG IV PUSH ×3 (09:36→18:36)
[2023-06-14 10:43] LABS: Immature Reticulocyte Fraction 14.3 % (3.0-15.9); Reticulocyte Percent 13.39 % (0.7-4.3)
[2023-06-14] MEDS: SODIUM CHLORIDE 0.9% IV 1,000 ML 75 ML IV CONT ×2 (11:07→23:29)
[2023-06-14 12:21] LABS: Band Neutrophils Percent 2 % (0-6); Eosinophils Absolute Manual 0.13 K/mm3 (0.02-0.5); Eosinophils Percent Manual 1 % (0-4); Lymphocytes Absolute Manual 1.18 K/mm3 (1.1-4.5); Lymphocytes Percent Manual 9 % (18-44); Monocytes Absolute Manual 0.52 K/mm3 (0.1-0.90); Monocytes Percent Manual 4 % (3-9); Neutrophils Absolute Manual 11.35 K/mm3 (1.3-6.7); Neutrophils Percent Manual 84 % (46-73); Smudge Cells FEW; Total Cells Counted 100
[2023-06-14 12:22] LABS: Anisocytosis 2+ (NORMAL); Basophilic Stippling 1+ (NORMAL); Hypochromasia 2+ (NORMAL); Large Platelets Present; Nucleated Red Blood Cells 5 %; Platelet Estimate Adequate (Adequate); Poikilocytosis 2+ (NORMAL)
[2023-06-14 12:23] LABS: Howell Jolly Bodies 1+ (NORMAL); Schistocytes Rare (NORMAL); Sickle Cells 2+ (NORMAL); Target Cells 2+ (NORMAL)
[2023-06-14 12:39] LABS: Pappenheimer Bodies 1+ (NORMAL)
[2023-06-14 18:30] LABS: Basophils Percent Auto 0.2 % (0.2-1.2); Eosinophils Absolute Auto 0.2 K/mm3 (0-0.3); Eosinophils Percent Auto 1.6 % (0-4.4); Immature Granulocyte Absolute 0.11 K/mm3 (0.00-0.031); Immature Granulocyte Percent A 0.9 % (0-0.5); Lymphocytes Absolute Auto 1.22 K/mm3 (0.9-3.2); Lymphocytes Percent Auto 9.8 % (18.3-44.2); Mean Corpuscular HGB Conc 35.4 g/dl (32-36); Mean Corpuscular Hemoglobin 31.9 pg (26-34); Mean Corpuscular Volume 90.1 fl (80-100); Monocytes Percent Auto 7.9 % (2.6-8.5); Neutrophils Absolute Auto 9.9 K/mm3 (1.3-6.7); Neutrophils Percent Auto 79.6 % (45.5-73.1); Nucleated Red Blood Cells Absolute Auto 1.2 K/mm3 (0.0-0.012); Nucleated Red Blood Cells Perc 9.8 % (0.0-0.2); Platelet Count Result 212 k/mm3 (150-375); Red Blood Count 2.13 M/mm3 (4.6-6.20); Red Cell Distribution Width 18.9 % (11.5-14.5); White Blood Count 12.5 K/mm3 (4.5-10.0)
[2023-06-14 18:43] LABS: Hemoglobin 6.8 g/dL (14.0-18.0)
[2023-06-14 18:44] LABS: Hematocrit 19.2 % (42.0-52.0)
[2023-06-14 18:45] LABS: Platelet Estimate Adequate (Adequate)
[2023-06-14 18:49] LABS: Basophilic Stippling 1+ (NORMAL); Lactate Dehydrogenase 604 U/L (120-246); Poikilocytosis 1+ (NORMAL)
[2023-06-14 18:50] LABS: Anisocytosis 1+ (NORMAL); Schistocytes Rare (NORMAL); Sickle Cells 1+ (NORMAL); Target Cells 2+ (NORMAL)
[2023-06-14 19:10] LABS: Immature Reticulocyte Fraction 11.8 % (3.0-15.9); Reticulocyte Hemoglobin Conten 22.6 pg (28.2-35.7); Reticulocyte Percent 12.76 % (0.7-4.3); Reticulocytes Absolute 0.27 M/mm3 (0.02-0.1)
--- NOTE | 2023-06-14 21:31 | PM.EVENT ---
Event Note Event Note Event Note: Nursing staff called me concerned about the patient's condition. The patient has been tachycardic since just prior to admission. He has been treated for pneumonia as he spiked a fever on the . He has acute chest syndrome and has been requiring oxygen. This evening he has had escalating oxygen requirements and is now requiring 7 L of high-flow oxygen to maintain saturations of 93-97%. The patient denies any current leg pain or swelling. He reports that his initial sickle pain was in his hips and legs. He reports that his chest just feels tight similar to when he has an asthma exacerbation. The stat chest x-ray demonstrated bilateral pleural effusion and findings consistent with acute chest syndrome. I felt that the x-ray findings were slightly worse than prior but radiology felt the imaging was stable. I did consider given the patient Lasix but wanted to discuss it with Oncology and or transferring services prior to providing diuretics. 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 He did develop a low-grade fever and tachycardia on the 1st day of admission. I cannot find where the patient received any DVT prophylaxis. Tertiary care did not feel strongly about ordering additional imaging at this time. This decision has been deferred to the receiving facility. The patient's hemoglobin on admission was 8.6 and trended down to 6.0 on the . The patient received 1 unit of packed red blood cells and hemoglobin went back up to 7.2 but is now back down to 6.8. I asked nursing staff to contact hematology that was consulted on the patient on admission. Hematology stated to hold off on blood transfusion as long as patient's hemoglobin was above 6. However he requested a Debra test which came back negative. He also requested that we arranged for the patient to be transferred to higher level of care for exchange transfusion. I discussed the patient's case with Dr. Marroquin the Hematology-Oncology fellow at [facility]. She agreed the patient would benefit from transfer. She stated that she wanted the patient admitted to the medical ICU. I talked to Dr. Pablo the resident on for medical ICU who accepted the patient for her attending Dr. Patterson. They requested the patient receive antibiotic therapy with cefepime and vancomycin. 85 minutes spent in critical care activities. Due to a high probability of clinically significant, life threatening deterioration, the patient required my highest level of preparedness to intervene emergently and I personally spent this critical care time directly and personally managing the patient. This critical care time included obtaining a history; examining the patient; pulse oximetry; ordering and review of studies; arranging urgent treatment with development of a management plan; evaluation of patient's response to treatment; frequent reassessment; and discussions with other providers. It was exclusive of separately billable procedures and treating other patients and teaching time. Please see Assessment and Plan section and the rest of the note for further information on patient assessment and treatment.
[2023-06-15] MEDS: diphenhydrAMINE HCl INJ 50 MG/ML VIAL 25 MG IV PUSH (00:43)
[2023-06-15] MEDS: ACETAMINOPHEN 325 MG TABLET 650 MG PO (00:43)
--- NOTE | 2023-07-11 08:31 | PM.TDS ---
Transfer Discharge Sum: Prov Provider Date of admission: 06/12/23 09:09 Primary care physician: UNKNOWN,DOCTOR Admitting clinician: Erlin Snow MD Consults: 06/11/23 Consult to Physician Routine Comment: Consulting Provider: Odell Carvalho call center rn/MD group to consult: hematology Reason for consultation: Sickle cell crisis Has provider been notified: Yes DS: Admitting Diagnosis Discharge Date 06/15/23 Admitting Diagnosis Generalized pain DS: Discharge Diagnosis Discharge Diagnosis (1) Sickle cell pain crisis: Code(s): D57.00 - Hb-SS disease with crisis, unspecified Status: Acute Assessment and Plan: Hematology has been consulted. Continue on a Dilaudid ELECTRICAL TESTS SUPERVISOR pump. The patient cannot tolerate hydroxyurea. Oncology on board. Monitor LDH, retic count, hgb. S/p transfusion 1 unit pRBCs 06/13 Continue IV fluids judiciously, dilaudid ELECTRICAL TESTS SUPERVISOR (2) Asthma: Code(s): J45.909 - Unspecified asthma, uncomplicated Status: Acute Assessment and Plan: Continue with home inhalers. Chest x-ray shows acute chest syndrome Plan DVT prophylaxis with SCDs GI prophylaxis not indicated Code status full code Transfer Discharge Sum: Med Medications Active and Home Medications: Home Medications albuterol sulfate 90 mcg/actuation aerosol inhaler 1 puff inhalation Q4-6H PRN Shortness Of Breath Or Wheezing 06/11/23 [History Confirmed 06/11/23] bictegravir 50 mg-emtricitabine 200 mg-tenofovir alafenam 25 mg tablet (Biktarvy) 1 tablet PO DAILY 06/11/23 [History Confirmed 06/11/23] budesonide-formoterol HFA 80 mcg-4.5 mcg/actuation aerosol inhaler (Symbicort) 1 puff inhalation DAILY 06/11/23 [History Confirmed 06/11/23] fluticasone propionate 50 mcg/actuation nasal spray,suspension 1 spray intranasal DAILY PRN Congestion 06/11/23 [History Confirmed 06/11/23] valacyclovir 1 gram tablet 1 mg PO DAILY 06/11/23 [History Confirmed 06/11/23] Transfer Discharge Sum: Hosp Hospital Course Hospital course: 22-year-old male with history of sickle cell anemia presenting with generalized pain and being treated for sickle cell crisis. Hematology has been consulted.? Continue on a Dilaudid ELECTRICAL TESTS SUPERVISOR pump.? The patient cannot tolerate hydroxyurea.? Oncology on board. Monitor LDH, retic count, hgb. S/p transfusion 1 unit pRBCs 06/13 Continue IV fluids judiciously, dilaudid ELECTRICAL TESTS SUPERVISOR. Overnight on June 14 the patient was noted to decompensate. Hospital Intern was consulted. Patient had fevers, acute decompensation of respiratory requirements. Transfer was arranged for higher level of care at [facility]. Antibiotics initiated. Please see crosscover note by stick puller for details. Patient transferred in stable condition. Time Spent with Patient Time attestation: Total time spent providing and/or coordinating transfer services: Exam Narrative: General: No acute distress, alert and oriented per baseline HEENT: Atraumatic, normocephalic, mucous membranes moist CV: Regular rate and rhythm, S1, S2 Lungs: Clear to auscultation bilaterally, no rales or crackles noted, no wheezes, good air entry Abdomen: Soft, nontender, nondistended Extremities: Normal to inspection Skin: No rashes noted, no lesions or wounds seen Psych: Euthymic, normal affect
== END 2023-06-15 01:37 | disposition short-term general hospital (02) | DRG 812 ==
LOC: ANHED 06-11 07:27 → ANHIMU 06-11 08:38
PROVIDERS: General Practice; Hospitalist; Internal Medicine Hematology & Oncology; Nurse Practitioner; Student in an Organized Health Care Education/Training Program; Admitting Provider Chiropractor; Emergency Provider Emergency Medicine; Visit Provider Internal Medicine
DX: D57.01 Hb-SS disease with acute chest syndrome (principal); J45.909 Unspecified asthma, uncomplicated; R77.8 Other specified abnormalities of plasma proteins
CPT/HCPCS: 36415; 36430; 71045; 71046; 80053; 81003; 83605; 83615; 84484; 85014; 85018; 85025; 85046; 85610; 85660; 85730; 86850; 86880; 86900; 86901; 86902; 86923; 87040; 93005; 94640; 96361; 96365; 96366; 96375; 96376; 99285; P9038; A9270; G0378; J1170; J1200; J1885; J2405; J3010; J7030; J7050